=== PATIENT | male | born 1955 | race Caucasian/White ===

== ENCOUNTER 2020-05-07 05:08 | Emergency (ER) | payer MEDICARE, BC ==
[~2020-05-07] VITALS: Ht 185.4 cm; Wt 98.4 kg
[~2020-05-07 05:08] MED LIST: LEVOTHYROXINE100 MCG PO; LIPITOR80 MG PO; LOSARTAN-HCTZ1 EAC2 PO
[2020-05-07] MEDS ORDERED: HYDROCHLOROTH12.5 MG PO (05:20)
[2020-05-07] MEDS ORDERED: LOSARTAN POTAS100 MG PO (05:20)
[2020-05-07] MEDS ORDERED: KEPPRA500 MG PO (06:48)
== END 2020-05-07 07:15 | disposition home or self-care (01) ==
LOC: ED 05:08
DX: G40.909 Epilepsy, unspecified, not intractable, without status epilepticus (principal); I10 Essential (primary) hypertension; E03.9 Hypothyroidism, unspecified; Z88.8 Allergy status to other drugs, medicaments and biological substances; Z79.899 Other long term (current) drug therapy
CPT/HCPCS: 70450; 80053; 81001; 85025; 96365; 99285-25; J1953